=== PATIENT | female | born 1965 | race Caucasian/White ===

== ENCOUNTER 2022-09-21 23:20 | Inpatient (IN) | payer MEDICAID ==
[~2022-09-21] VITALS: Ht 162.6 cm; Wt 54.4 kg
[2022-09-21 23:35] VITALS: BP 144/77
[2022-09-22] MEDS ORDERED: DEXTROSE 50% WATER 50ML SYRINGE IV PRN (01:00)
[2022-09-22] MEDS ORDERED: ONDANSETRON HCL 4MG TABLET PO PRN (01:00)
[2022-09-22] MEDS ORDERED: CLONIDINE 0.1MG TABLET PO PRN (01:00)
[2022-09-22] MEDS ORDERED: DOCUSATE SODIUM 100MG CAPSULE PO PRN (01:00)
[2022-09-22] MEDS: BLOOD SUGAR DIAGNOSTIC STRIP TEST SCH ×4 (06:31→21:51)
[2022-09-22 07:16] LABS: BASOPHILS % 0.6 % (0.0-2.0); EOSINOPHILS % 2.4 % (0.0-5.0); HEMATOCRIT. 40.4 % (36.0-48.0); HEMOGLOBIN. 13.9 g/dL (12.0-16.0); LYMPHOCYTES % 28.5 % (20.0-50.0); MEAN PLATELET VOLUME 8.1 fl (7.4-10.4); NEUTROPHILS % 59.5 % (40.0-76.0); PLATELET 229 x1000/uL (130-400); RED BLOOD CELL COUNT 4.81 mill/uL (4.2-5.4); RED CELL DISTRIBUTION WIDTH 13.2 % (11.6-14.6)
[2022-09-22 07:42] LABS: CHLORIDE 107 mEq/L (98-107)
[2022-09-22 08:00] VITALS: BP 133/73
[2022-09-22] MEDS: ASPIRIN 81MG TABLET PO SCH (08:36)
[2022-09-22] MEDS: HEPARIN 5000 UNITS/ML VIAL SUBCUT SCH ×2 (08:39→21:37)
[2022-09-22] MEDS: INSULIN LISPRO 100 UNITS/ML SUBCUT SCH ×4 (08:40→21:46)
[2022-09-22 12:50] LABS: HEPATITIS B SURFACE ANTIGEN NEGATIVE
[2022-09-22 20:00] VITALS: BP 132/70
[2022-09-22] MEDS: ATORVASTATIN CALCIUM 40MG TABLET PO SCH (21:36)
[2022-09-22] MEDS: INSULIN GLARGINE 100 UNITS/ML SUBCUT SCH (22:34)
[2022-09-23] MEDS: INSULIN LISPRO 100 UNITS/ML SUBCUT SCH ×4 (07:04→21:00)
[2022-09-23] MEDS: BLOOD SUGAR DIAGNOSTIC STRIP TEST SCH ×4 (07:05→21:54)
[2022-09-23 08:00] VITALS: BP 124/71
[2022-09-23] MEDS: ASPIRIN 81MG TABLET PO SCH (09:21)
[2022-09-23] MEDS: HEPARIN 5000 UNITS/ML VIAL SUBCUT SCH ×2 (09:22→21:56)
[2022-09-23 20:00] VITALS: BP 131/77
[2022-09-23] MEDS: ATORVASTATIN CALCIUM 40MG TABLET PO SCH (21:55)
[2022-09-23] MEDS: INSULIN GLARGINE 100 UNITS/ML SUBCUT SCH (22:07)
[2022-09-24] MEDS: BLOOD SUGAR DIAGNOSTIC STRIP TEST SCH ×4 (05:56→21:00)
[2022-09-24] MEDS: INSULIN LISPRO 100 UNITS/ML SUBCUT SCH ×4 (06:26→23:03)
[2022-09-24 08:00] VITALS: BP 128/74
[2022-09-24] MEDS: HEPARIN 5000 UNITS/ML VIAL SUBCUT SCH ×2 (09:16→22:57)
[2022-09-24] MEDS: ASPIRIN 81MG TABLET PO SCH (09:16)
[2022-09-24 20:00] VITALS: BP 147/78
[2022-09-24] MEDS ORDERED: INSULIN GLARGINE 100 UNITS/ML SUBCUT SCH (22:00)
[2022-09-24] MEDS: ATORVASTATIN CALCIUM 40MG TABLET PO SCH (22:58)
[2022-09-25] MEDS: BLOOD SUGAR DIAGNOSTIC STRIP TEST SCH ×4 (06:30→21:19)
[2022-09-25] MEDS: INSULIN LISPRO 100 UNITS/ML SUBCUT SCH ×6 (06:56→21:00)
[2022-09-25 07:58] LABS: BASOPHILS % 0.7 % (0.0-2.0); EOSINOPHILS % 1.8 % (0.0-5.0); HEMATOCRIT. 39.2 % (36.0-48.0); HEMOGLOBIN. 13.4 g/dL (12.0-16.0); LYMPHOCYTES % 45.9 % (20.0-50.0); MEAN CORPUSCULAR HEMOGLOBIN 29.1 pg (28.0-32.0); MEAN CORPUSCULAR VOLUME 85.1 fL (81.0-99.0); MEAN PLATELET VOLUME 8.4 fl (7.4-10.4); MONOCYTES % 9.6 % (2.0-8.0); PLATELET 249 x1000/uL (130-400); RED BLOOD CELL COUNT 4.61 mill/uL (4.2-5.4); RED CELL DISTRIBUTION WIDTH 13.1 % (11.6-14.6)
[2022-09-25 08:00] VITALS: BP 124/73
[2022-09-25 08:15] LABS: CHLORIDE 105 mEq/L (98-107)
[2022-09-25] MEDS: ASPIRIN 81MG TABLET PO SCH (10:09)
[2022-09-25] MEDS: AMLODIPINE 5MG TABLET PO SCH (10:10)
[2022-09-25] MEDS: HEPARIN 5000 UNITS/ML VIAL SUBCUT SCH ×2 (10:10→22:48)
[2022-09-25 20:00] VITALS: BP 143/80
[2022-09-25] MEDS ORDERED: INSULIN GLARGINE 100 UNITS/ML SUBCUT SCH (22:00)
[2022-09-25] MEDS: FAMOTIDINE 20MG TABLET PO SCH (22:49)
[2022-09-25] MEDS: ATORVASTATIN CALCIUM 40MG TABLET PO SCH (22:49)
[2022-09-26] MEDS: BLOOD SUGAR DIAGNOSTIC STRIP TEST SCH ×4 (06:30→21:00)
[2022-09-26] MEDS: INSULIN LISPRO 100 UNITS/ML SUBCUT SCH ×7 (06:30→23:02)
[2022-09-26 08:00] VITALS: BP 112/61
[2022-09-26] MEDS: HEPARIN 5000 UNITS/ML VIAL SUBCUT SCH ×2 (09:00→21:00)
[2022-09-26] MEDS: AMLODIPINE 5MG TABLET PO SCH (09:00)
[2022-09-26] MEDS: ASPIRIN 81MG TABLET PO SCH (09:00)
[2022-09-26] MEDS: FAMOTIDINE 20MG TABLET PO SCH ×2 (09:00→22:45)
[2022-09-26 09:31] LABS: HEMOGLOBIN 13.8 g/dL (12.0-16.0); MEAN CORPUSCULAR HEMOGLOBIN 28.9 pg (28.0-32.0); MEAN CORPUSCULAR VOLUME 86.1 fL (81.0-99.0); PLATELET 272 x1000/uL (130-400); RED BLOOD CELL COUNT 4.76 mill/uL (4.2-5.4); RED CELL DISTRIBUTION WIDTH 13.5 % (11.6-14.6)
[2022-09-26 09:40] LABS: CHLORIDE 105 mEq/L (98-107)
[2022-09-26 19:50] VITALS: BP 113/66
[2022-09-26] MEDS ORDERED: INSULIN GLARGINE 100 UNITS/ML SUBCUT SCH (22:00)
[2022-09-26] MEDS: ATORVASTATIN CALCIUM 40MG TABLET PO SCH (22:45)
[2022-09-27] MEDS: BLOOD SUGAR DIAGNOSTIC STRIP TEST SCH ×4 (07:06→21:15)
[2022-09-27 07:50] LABS: HEMATOCRIT 37.1 % (36.0-48.0); HEMOGLOBIN 12.8 g/dL (12.0-16.0); MEAN CORPUSCULAR HEMOGLOBIN 29.6 pg (28.0-32.0); MEAN CORPUSCULAR VOLUME 85.8 fL (81.0-99.0); PLATELET 260 x1000/uL (130-400); RED BLOOD CELL COUNT 4.32 mill/uL (4.2-5.4); RED CELL DISTRIBUTION WIDTH 13.1 % (11.6-14.6)
[2022-09-27 08:00] VITALS: BP 119/68
[2022-09-27] MEDS: INSULIN LISPRO 100 UNITS/ML SUBCUT SCH ×6 (08:13→21:49)
[2022-09-27 08:37] LABS: CHLORIDE 105 mEq/L (98-107)
[2022-09-27] MEDS: HEPARIN 5000 UNITS/ML VIAL SUBCUT SCH ×2 (09:37→20:56)
[2022-09-27] MEDS: AMLODIPINE 5MG TABLET PO SCH (09:38)
[2022-09-27] MEDS: ASPIRIN 81MG TABLET PO SCH (09:38)
[2022-09-27] MEDS: FAMOTIDINE 20MG TABLET PO SCH ×2 (09:38→20:56)
[2022-09-27] MEDS: ACETAMINOPHEN 325MG TABLET PO PRN (10:58)
[2022-09-27 20:00] VITALS: BP 129/68
[2022-09-27] MEDS: ATORVASTATIN CALCIUM 40MG TABLET PO SCH (20:56)
[2022-09-27] MEDS ORDERED: INSULIN GLARGINE 100 UNITS/ML SUBCUT SCH (22:00)
[2022-09-28] MEDS: BLOOD SUGAR DIAGNOSTIC STRIP TEST SCH ×4 (06:09→21:11)
[2022-09-28 07:12] LABS: HEMATOCRIT 38.1 % (36.0-48.0); HEMOGLOBIN 12.8 g/dL (12.0-16.0); MEAN CORPUSCULAR HEMOGLOBIN 28.4 pg (28.0-32.0); MEAN CORPUSCULAR VOLUME 84.4 fL (81.0-99.0); PLATELET 284 x1000/uL (130-400); RED BLOOD CELL COUNT 4.52 mill/uL (4.2-5.4); RED CELL DISTRIBUTION WIDTH 13.1 % (11.6-14.6)
[2022-09-28 07:21] LABS: CHLORIDE 106 mEq/L (98-107)
[2022-09-28] MEDS: INSULIN LISPRO 100 UNITS/ML SUBCUT SCH ×7 (07:44→22:05)
[2022-09-28 08:00] VITALS: BP 121/75
[2022-09-28] MEDS: HEPARIN 5000 UNITS/ML VIAL SUBCUT SCH ×2 (10:17→21:11)
[2022-09-28] MEDS: ASPIRIN 81MG TABLET PO SCH (10:18)
[2022-09-28] MEDS: AMLODIPINE 5MG TABLET PO SCH (10:18)
[2022-09-28] MEDS: FAMOTIDINE 20MG TABLET PO SCH ×2 (10:18→21:11)
[2022-09-28 20:00] VITALS: BP 107/51
[2022-09-28] MEDS: ATORVASTATIN CALCIUM 40MG TABLET PO SCH (21:11)
[2022-09-28] MEDS: INSULIN GLARGINE 100 UNITS/ML SUBCUT SCH (22:05)
[2022-09-29] MEDS: BLOOD SUGAR DIAGNOSTIC STRIP TEST SCH ×4 (06:55→20:42)
[2022-09-29] MEDS: INSULIN LISPRO 100 UNITS/ML SUBCUT SCH ×6 (06:55→21:57)
[2022-09-29] MEDS: ASPIRIN 81MG TABLET PO SCH (09:53)
[2022-09-29] MEDS: AMLODIPINE 5MG TABLET PO SCH (09:54)
[2022-09-29] MEDS: FAMOTIDINE 20MG TABLET PO SCH ×2 (09:54→20:54)
[2022-09-29] MEDS: HEPARIN 5000 UNITS/ML VIAL SUBCUT SCH ×2 (09:55→20:55)
[2022-09-29 20:00] VITALS: BP 133/70
[2022-09-29] MEDS: ATORVASTATIN CALCIUM 40MG TABLET PO SCH (20:54)
[2022-09-29] MEDS: INSULIN GLARGINE 100 UNITS/ML SUBCUT SCH (22:04)
[2022-09-30] MEDS: BLOOD SUGAR DIAGNOSTIC STRIP TEST SCH ×4 (07:16→21:00)
[2022-09-30 07:24] LABS: HEMATOCRIT 38.5 % (36.0-48.0); HEMOGLOBIN 13.2 g/dL (12.0-16.0); MEAN CORPUSCULAR VOLUME 84.5 fL (81.0-99.0); PLATELET 304 x1000/uL (130-400); RED BLOOD CELL COUNT 4.55 mill/uL (4.2-5.4)
[2022-09-30 07:50] LABS: CHLORIDE 106 mEq/L (98-107)
[2022-09-30 08:00] VITALS: BP 110/66
[2022-09-30] MEDS: AMLODIPINE 5MG TABLET PO SCH (09:00)
[2022-09-30] MEDS: ASPIRIN 81MG TABLET PO SCH (09:37)
[2022-09-30] MEDS: HEPARIN 5000 UNITS/ML VIAL SUBCUT SCH ×2 (09:37→22:20)
[2022-09-30] MEDS: FAMOTIDINE 20MG TABLET PO SCH ×2 (09:37→22:19)
[2022-09-30] MEDS: INSULIN LISPRO 100 UNITS/ML SUBCUT SCH ×6 (09:40→21:00)
[2022-09-30 20:00] VITALS: BP 125/75
[2022-09-30] MEDS: ATORVASTATIN CALCIUM 40MG TABLET PO SCH (22:19)
[2022-09-30] MEDS: INSULIN GLARGINE 100 UNITS/ML SUBCUT SCH (22:22)
[2022-10-01] MEDS: BLOOD SUGAR DIAGNOSTIC STRIP TEST SCH ×4 (07:13→21:00)
[2022-10-01] MEDS: INSULIN LISPRO 100 UNITS/ML SUBCUT SCH ×7 (07:19→21:00)
[2022-10-01 07:31] LABS: HEMATOCRIT 38.6 % (36.0-48.0); HEMOGLOBIN 13.1 g/dL (12.0-16.0); MEAN CORPUSCULAR HEMOGLOBIN 28.9 pg (28.0-32.0); MEAN CORPUSCULAR VOLUME 85.4 fL (81.0-99.0); PLATELET 311 x1000/uL (130-400); RED BLOOD CELL COUNT 4.53 mill/uL (4.2-5.4); RED CELL DISTRIBUTION WIDTH 13.1 % (11.6-14.6)
[2022-10-01 07:50] LABS: CHLORIDE 107 mEq/L (98-107)
[2022-10-01 08:00] VITALS: BP 127/69
[2022-10-01] MEDS: FAMOTIDINE 20MG TABLET PO SCH ×2 (09:49→21:49)
[2022-10-01] MEDS: ASPIRIN 81MG TABLET PO SCH (09:49)
[2022-10-01] MEDS: AMLODIPINE 5MG TABLET PO SCH (09:50)
[2022-10-01] MEDS: HEPARIN 5000 UNITS/ML VIAL SUBCUT SCH ×2 (09:53→21:49)
[2022-10-01 20:00] VITALS: BP 127/75
[2022-10-01] MEDS: INSULIN GLARGINE 100 UNITS/ML SUBCUT SCH (21:49)
[2022-10-01] MEDS: ATORVASTATIN CALCIUM 40MG TABLET PO SCH (21:49)
[2022-10-02] MEDS: BLOOD SUGAR DIAGNOSTIC STRIP TEST SCH ×4 (06:30→21:00)
[2022-10-02 06:50] LABS: HEMOGLOBIN 12.8 g/dL (12.0-16.0); MEAN CORPUSCULAR HEMOGLOBIN 29.2 pg (28.0-32.0); MEAN CORPUSCULAR VOLUME 84.6 fL (81.0-99.0); PLATELET 293 x1000/uL (130-400); RED BLOOD CELL COUNT 4.37 mill/uL (4.2-5.4); RED CELL DISTRIBUTION WIDTH 13.2 % (11.6-14.6)
[2022-10-02 07:05] LABS: CHLORIDE 107 mEq/L (98-107)
[2022-10-02] MEDS: INSULIN LISPRO 100 UNITS/ML SUBCUT SCH ×5 (07:10→22:09)
[2022-10-02 08:00] VITALS: BP 125/77
[2022-10-02] MEDS: FAMOTIDINE 20MG TABLET PO SCH ×2 (08:59→21:57)
[2022-10-02] MEDS: AMLODIPINE 5MG TABLET PO SCH (08:59)
[2022-10-02] MEDS: ASPIRIN 81MG TABLET PO SCH (08:59)
[2022-10-02] MEDS: HEPARIN 5000 UNITS/ML VIAL SUBCUT SCH ×2 (09:00→21:56)
[2022-10-02] MEDS: ACETAMINOPHEN 325MG TABLET PO PRN (16:02)
[2022-10-02 20:00] VITALS: BP 124/68
[2022-10-02] MEDS: ATORVASTATIN CALCIUM 40MG TABLET PO SCH (21:57)
[2022-10-02] MEDS: INSULIN GLARGINE 100 UNITS/ML SUBCUT SCH (22:06)
[2022-10-03] MEDS: BLOOD SUGAR DIAGNOSTIC STRIP TEST SCH ×4 (06:08→21:11)
[2022-10-03] MEDS: INSULIN LISPRO 100 UNITS/ML SUBCUT SCH ×7 (06:51→21:34)
[2022-10-03 07:11] LABS: HEMATOCRIT 37.4 % (36.0-48.0); HEMOGLOBIN 12.6 g/dL (12.0-16.0); MEAN CORPUSCULAR HEMOGLOBIN 28.7 pg (28.0-32.0); MEAN CORPUSCULAR VOLUME 85.1 fL (81.0-99.0); PLATELET 299 x1000/uL (130-400); RED BLOOD CELL COUNT 4.39 mill/uL (4.2-5.4); RED CELL DISTRIBUTION WIDTH 13.3 % (11.6-14.6)
[2022-10-03 07:36] LABS: CHLORIDE 108 mEq/L (98-107)
[2022-10-03 08:00] VITALS: BP 122/69
[2022-10-03] MEDS: ASPIRIN 81MG TABLET PO SCH (09:08)
[2022-10-03] MEDS: FAMOTIDINE 20MG TABLET PO SCH ×2 (09:08→21:13)
[2022-10-03] MEDS: HEPARIN 5000 UNITS/ML VIAL SUBCUT SCH ×2 (09:09→21:13)
[2022-10-03] MEDS: AMLODIPINE 5MG TABLET PO SCH (09:09)
[2022-10-03] MEDS: ACETAMINOPHEN 325MG TABLET PO PRN (09:10)
[2022-10-03 20:00] VITALS: BP 119/57
[2022-10-03] MEDS: ATORVASTATIN CALCIUM 40MG TABLET PO SCH (21:13)
[2022-10-03] MEDS: INSULIN GLARGINE 100 UNITS/ML SUBCUT SCH (21:34)
[2022-10-04] MEDS: BLOOD SUGAR DIAGNOSTIC STRIP TEST SCH ×4 (06:45→21:00)
[2022-10-04] MEDS: INSULIN LISPRO 100 UNITS/ML SUBCUT SCH ×7 (07:00→22:25)
[2022-10-04 08:00] VITALS: BP 127/76
[2022-10-04] MEDS: FAMOTIDINE 20MG TABLET PO SCH ×2 (08:33→21:00)
[2022-10-04] MEDS: ASPIRIN 81MG TABLET PO SCH (08:33)
[2022-10-04] MEDS: HEPARIN 5000 UNITS/ML VIAL SUBCUT SCH ×2 (08:34→21:00)
[2022-10-04] MEDS: ACETAMINOPHEN 325MG TABLET PO PRN (08:35)
[2022-10-04] MEDS: AMLODIPINE 5MG TABLET PO SCH (08:36)
[2022-10-04 19:52] VITALS: BP 120/58
[2022-10-04] MEDS: ATORVASTATIN CALCIUM 40MG TABLET PO SCH (21:00)
[2022-10-04] MEDS: INSULIN GLARGINE 100 UNITS/ML SUBCUT SCH (22:47)
[2022-10-05 06:15] LABS: HEMATOCRIT 37.5 % (36.0-48.0); HEMOGLOBIN 12.6 g/dL (12.0-16.0); MEAN CORPUSCULAR HEMOGLOBIN 28.7 pg (28.0-32.0); MEAN CORPUSCULAR VOLUME 85.4 fL (81.0-99.0); PLATELET 291 x1000/uL (130-400); RED BLOOD CELL COUNT 4.39 mill/uL (4.2-5.4); RED CELL DISTRIBUTION WIDTH 13.2 % (11.6-14.6)
[2022-10-05 06:22] LABS: CHLORIDE 108 mEq/L (98-107)
[2022-10-05] MEDS: BLOOD SUGAR DIAGNOSTIC STRIP TEST SCH ×4 (07:04→21:09)
[2022-10-05] MEDS: INSULIN LISPRO 100 UNITS/ML SUBCUT SCH ×7 (07:53→21:08)
[2022-10-05 08:00] VITALS: BP 128/70
[2022-10-05] MEDS: HEPARIN 5000 UNITS/ML VIAL SUBCUT SCH ×2 (08:55→20:26)
[2022-10-05] MEDS: AMLODIPINE 5MG TABLET PO SCH (08:55)
[2022-10-05] MEDS: ASPIRIN 81MG TABLET PO SCH (08:55)
[2022-10-05] MEDS: FAMOTIDINE 20MG TABLET PO SCH ×2 (08:55→20:25)
[2022-10-05 20:00] VITALS: BP 140/74
[2022-10-05] MEDS: ATORVASTATIN CALCIUM 40MG TABLET PO SCH (20:25)
[2022-10-05] MEDS: INSULIN GLARGINE 100 UNITS/ML SUBCUT SCH (21:08)
[2022-10-06] MEDS: BLOOD SUGAR DIAGNOSTIC STRIP TEST SCH (06:49)
[2022-10-06] MEDS: INSULIN LISPRO 100 UNITS/ML SUBCUT SCH ×2 (06:50→09:00)
[2022-10-06 08:00] VITALS: BP 125/77
[2022-10-06 08:04] LABS: HEMATOCRIT 36.7 % (36.0-48.0); HEMOGLOBIN 12.8 g/dL (12.0-16.0); MEAN CORPUSCULAR HEMOGLOBIN 29.6 pg (28.0-32.0); MEAN CORPUSCULAR VOLUME 85.1 fL (81.0-99.0); PLATELET 288 x1000/uL (130-400); RED BLOOD CELL COUNT 4.31 mill/uL (4.2-5.4); RED CELL DISTRIBUTION WIDTH 13.3 % (11.6-14.6)
[2022-10-06] MEDS: FAMOTIDINE 20MG TABLET PO SCH (08:18)
[2022-10-06] MEDS: ASPIRIN 81MG TABLET PO SCH (08:18)
[2022-10-06] MEDS: AMLODIPINE 5MG TABLET PO SCH (08:18)
[2022-10-06] MEDS: HEPARIN 5000 UNITS/ML VIAL SUBCUT SCH (08:19)
[2022-10-06 08:24] LABS: CHLORIDE 108 mEq/L (98-107)
[2022-10-06 10:37] VITALS: BP 125/77
== END 2022-10-06 10:45 | disposition home health service (06) | DRG 45 ==
PROVIDERS: ADMIT Psychiatry & Neurology Neurology; ATTEND Hospitalist
DX: I63.9 Cerebral infarction, unspecified (principal); I67.1 Cerebral aneurysm, nonruptured; E44.1 Mild protein-calorie malnutrition; R56.9 Unspecified convulsions; K92.2 Gastrointestinal hemorrhage, unspecified; I10 Essential (primary) hypertension; E11.65 Type 2 diabetes mellitus with hyperglycemia; E78.00 Pure hypercholesterolemia, unspecified; Z79.4 Long term (current) use of insulin; Z79.899 Other long term (current) drug therapy; Z86.73 Personal history of transient ischemic attack (TIA), and cerebral infarction without residual deficits; Z91.81 History of falling; Z68.20 Body mass index [BMI] 20.0-20.9, adult
CPT/HCPCS: 36415; 80048; 80053; 82962; 83036; 85025; 85027; 86803; 87340; 92523; 92610; 93970; 97110; 97112; 97116; 97150; 97162; 97166; 97530; 97535; A4565; C1893; J1644; J1815